=== PATIENT | female | born 1950 | race Caucasian/White ===

== ENCOUNTER 2018-12-21 11:31 | Emergency (ER) | payer MEDICARE, BC ==
[~2018-12-21] VITALS: Ht 157.5 cm; Wt 63.5 kg
[~2018-12-21 11:31] MED LIST: ATOR10TA; ESCI5TAB PO
--- NOTE | 2018-12-21 11:31 | NUR ---
CAME IN FOR DIZZINESS AND SHORT OF BREATH. TO ER BED 2, HOOKED TO MONITOR, CHANGED TO GOWN, AWAITING MD COLLADO
--- NOTE | 2018-12-21 11:53 | NUR ---
DR ALLEN AT BEDSIDE
[2018-12-21 12:04] LABS: BASOPHILS # (AUTO) 0.1 /CMM (0.0-0.2); BASOPHILS % (AUTO) 0.8 % (0.0-2.0); EOSINOPHILS % (AUTO) 1.3 % (0.0-6.0); HEMATOCRIT 42 % (33-45); LYMPHOCYTES # (AUTO) 2.3 /CMM (0.8-4.8); LYMPHOCYTES % (AUTO) 33.1 % (20.0-44.0); MEAN CORPUSCULAR HGB CONC 33 g/dl (31.0-36.0); MEAN CORPUSCULAR VOLUME 92 fL (82-100); MONOCYTES # (AUTO) 0.5 /CMM (0.1-1.30); MONOCYTES % (AUTO) 7.6 % (2.0-12.0); NEUTROPHILS % (AUTO) 57.2 % (43.0-81.0); PLATELET COUNT (AUTO) 324 /CMM (150-450); RED BLOOD CELL COUNT(AUTO) 4.59 MIL/uL (4.0-5.2); WHITE BLOOD COUNT (AUTO) 6.9 K/uL (4.3-11.0)
[2018-12-21 12:11] LABS: CALCIUM, SERUM 8.9 mg/dL (8.5-10.1); CARBON DIOXIDE 30 mmol/L (21-32); CHLORIDE 102 mmol/L (98-107); CREATININE 0.8 mg/dL (0.6-1.3); GLUCOSE 92 mg/dL (74-106); POTASSIUM 4.1 mmol/L (3.5-5.1); SODIUM SERUM 138 mmol/L (136-145); UREA NITROGEN, BLOOD 23 mg/dL (7-18)
[2018-12-21] MEDS ORDERED: MONT10TA22 PO (12:27)
[2018-12-21] MEDS ORDERED: NAPR500T6 PO (12:27)
[2018-12-21] MEDS ORDERED: IPRA42SP NS (12:27)
[2018-12-21] MEDS ORDERED: VALA10002 PO (12:27)
[2018-12-21] MEDS ORDERED: CALC-1026 PO (12:27)
[2018-12-21] MEDS ORDERED: CYAN10009 PO (12:27)
--- NOTE | 2018-12-21 13:59 | NUR ---
IV removed. Catheter intact and site benign. Pressure and 4x4 applied to site. No bleeding noted.Patient discharged to home in stable condition. Written and verbal after care instructions given. Patient verbalizes understanding of instruction.
[2018-12-21 14:01] VITALS: BP 136/67
== END 2018-12-21 14:01 | disposition home or self-care (01) ==
LOC: ER 11:32
DX: R06.00 Dyspnea, unspecified (principal); R07.89 Other chest pain; F17.200 Nicotine dependence, unspecified, uncomplicated; Z88.0 Allergy status to penicillin; Z79.899 Other long term (current) drug therapy
CPT/HCPCS: 36415; 71045-TC; 80048-TC; 84484-TC; 85025-TC; 85378-TC